=== PATIENT | female | born 1990 | race African-American/Black ===

== ENCOUNTER 2018-03-31 18:05 | Emergency (ER) | payer OTHER ==
[~2018-03-31] VITALS: Ht 162.6 cm; Wt 54.3 kg
[2018-03-31 18:14] VITALS: BP 110/66
[2018-03-31] MEDS ORDERED: HYDROcodone/APAP 5/325 TABLET ONE (18:30)
[2018-03-31] MEDS ORDERED: HYDROcodone/APAP 5/325 TABLET PO ONE (18:30)
== END 2018-03-31 19:03 | disposition home or self-care (01) ==
LOC: ED 18:57
DX: K04.7 Periapical abscess without sinus (principal); K08.89 Other specified disorders of teeth and supporting structures
CPT/HCPCS: 99283